=== PATIENT | male | born 1960 | race Two or more races ===

== ENCOUNTER 2020-07-09 11:33 | Emergency (ER) | payer SELFPAY ==
[~2020-07-09] VITALS: Ht 162.6 cm; Wt 81.6 kg
[2020-07-09 13:17] VITALS: BP 118/79
== END 2020-07-09 13:33 | disposition home or self-care (01) ==
LOC: ER 11:33
DX: S93.401A Sprain of unspecified ligament of right ankle, initial encounter (principal); X50.1XXA Overexertion from prolonged static or awkward postures, initial encounter; Y93.89 Activity, other specified; Y92.89 Other specified places as the place of occurrence of the external cause; Y99.8 Other external cause status
CPT/HCPCS: 73610